=== PATIENT | male | born 1940 | race Caucasian/White ===

== ENCOUNTER 2018-01-11 17:50 | Emergency (ER) | payer MEDICARE ==
[~2018-01-11] VITALS: Ht 180.3 cm; Wt 78.0 kg
[~2018-01-11 17:50] MED LIST: ASPI1TAB69 PO; CHERSYP2 PO; LOSA50TA PO; ROSU40 PO; ZITHTAB PO
[2018-01-11 17:53] VITALS: BP 117/59; PULSE 93; RESP 16; TEMP 98.3; O2SAT 96
[2018-01-11 17:56] VITALS: BP 117/59; PULSE 93; RESP 16; TEMP 98.3
[2018-01-11 18:43] LABS: AUTOMATED NEUTROPHIL # 11.7 TH/MM3 (1.8-7.7); BASOPHIL # 0.1 TH/MM3 (0-0.2); BASOPHIL % 0.6 % (0.0-2.0); EOSINOPHIL # 0.1 TH/MM3 (0-0.4); EOSINOPHIL % 0.8 % (0.0-4.0); HEMATOCRIT 41.5 % (39.0-51.0); HEMOGLOBIN 13.8 GM/DL (13.0-17.0); LYMPHOCYTE # 0.3 TH/MM3 (1.0-4.8); MEAN CELL VOLUME 91.2 FL (80.0-100.0); MEAN CORPUSCULAR HEMOGLOBIN 30.4 PG (27.0-34.0); MEAN CORPUSCULAR HGB CONC 33.3 % (32.0-36.0); MEAN PLATELET VOLUME 8.8 FL (7.0-11.0); MONO % 4.7 % (0.0-8.0); MONOCYTE # 0.6 TH/MM3 (0-0.9); NEUT % 91.9 % (16.0-70.0); PLATELET COUNT 158 TH/MM3 (150-450); RED BLOOD COUNT 4.55 MIL/MM3 (4.50-5.90); RED CELL DISTRIBUTION WIDTH 13.6 % (11.6-17.2); WHITE BLOOD COUNT 12.8 TH/MM3 (4.0-11.0)
--- NOTE | 2018-01-11 18:51 | PD ---
HPI Chief Complaint: Abdominal Pain Time Seen by Provider: 18:13 Travel History International Travel<30 days: No Contact w/Intl Traveler<30days: No Traveled to known affect area: No History of Present Illness HPI 77yo M with PMH of HTN, CAD s/p CABG presents to the ED with c/o lower abdominal pain today. said he has been having generalized fatigue and weakness today. Said he just laid in bed all day and normally more active. Denies any fever, chest pain, sob, n/v, dysuria, hematuria, diarrhea, focal weakness or numbness. PFSH Past Medical History Hx Anticoagulant Therapy: Yes (asa 81mg) Blood Disorders: No Cancer: No Cardiovascular Problems: Yes Coronary Artery Disease: Yes Genitourinary: Yes Hypertension: Yes Kidney Stones: Yes Musculoskeletal: No Neurologic: No Psychiatric: No Reproductive: No Respiratory: No Influenza Vaccination: Yes Past Surgical History Abdominal Surgery: No AICD: No Arteriovenous Shunt: No Cardiac Surgery: Yes Coronary Artery Bypass Graft: Yes (X2) Ear Surgery: No Endocrine Surgery: No Eye Surgery: No Genitourinary Surgery: No Gynecologic Surgery: No Insulin Pump: No Joint Replacement: No Oral Surgery: No Pacemaker: No Thoracic Surgery: No Other Surgery: Yes Social History Alcohol Use: No Tobacco Use: No Substance Use: No Allergies-Medications (Allergen,Severity, Reaction): Coded Allergies: No Known Allergies (Verified Adverse Reaction, Unknown, 01/11/18) Reported Meds & Prescriptions Reported Meds & Active Scripts Active Reported Losartan (Losartan Potassium) 50 Mg Tab 50 Mg PO DAILY Crestor (Rosuvastatin Calcium) 40 Mg Tab 40 Mg PO DAILY Aspirin 81 Mg Tabdr 81 Mg PO DAILY Review of Systems Except as stated in HPI: all other systems reviewed are Neg Physical Exam Narrative GENERAL: 77yo M not in distress. SKIN: Focused skin assessment warm/dry. HEAD: Atraumatic. Normocephalic. EYES: Pupils equal and round. No scleral icterus. No injection or drainage. ENT: No nasal bleeding or discharge. Mucous membranes pink and moist. NECK: Trachea midline. No JVD. CARDIOVASCULAR: Regular rate and rhythm. + murmur appreciated. RESPIRATORY: No accessory muscle use. Clear to auscultation. Breath sounds equal bilaterally. GASTROINTESTINAL: Abdomen soft, +suprapubic and LLQ pain. No rebound tenderness or guarding. MUSCULOSKELETAL: No obvious deformities. No clubbing. No cyanosis. No edema. NEUROLOGICAL: Awake and alert. No obvious cranial nerve deficits. Motor grossly within normal limits. Normal speech. PSYCHIATRIC: Appropriate mood and affect; insight and judgment normal. Data Data Last Documented VS Vital Signs Date Time Temp Pulse Resp B/P (MAP) Pulse Ox O2 Delivery O2 Flow Rate FiO2 01/11/18 20:13 98.2 84 16 110/59 (76) 100 Room Air Orders Orders Complete Blood Count With Diff (01/11/18 18:24) Comprehensive Metabolic Panel (01/11/18 18:24) Lipase (01/11/18 18:24) Urinalysis - C+S If Indicated (01/11/18 18:24) Ct Abd/Pel W Iv Contrast(Rout) (01/11/18 18:24) Electrocardiogram (01/11/18 18:24) Urine Culture (01/11/18 19:08) Ceftriaxone Inj (Rocephin Inj) (01/11/18 20:00) Morphine Inj (Morphine Inj) (01/11/18 20:00) Us Abdomen Gallbladder (01/11/18 ) Labs Laboratory Tests Test 01/11/18 18:35 01/11/18 19:08 White Blood Count 12.8 TH/MM3 Red Blood Count 4.55 MIL/MM3 Hemoglobin 13.8 GM/DL Hematocrit 41.5 % Mean Corpuscular Volume 91.2 FL Mean Corpuscular Hemoglobin 30.4 PG Mean Corpuscular Hemoglobin Concent 33.3 % Red Cell Distribution Width 13.6 % Platelet Count 158 TH/MM3 Mean Platelet Volume 8.8 FL Neutrophils (%) (Auto) 91.9 % Lymphocytes (%) (Auto) 2.0 % Monocytes (%) (Auto) 4.7 % Eosinophils (%) (Auto) 0.8 % Basophils (%) (Auto) 0.6 % Neutrophils # (Auto) 11.7 TH/MM3 Lymphocytes # (Auto) 0.3 TH/MM3 Monocytes # (Auto) 0.6 TH/MM3 Eosinophils # (Auto) 0.1 TH/MM3 Basophils # (Auto) 0.1 TH/MM3 CBC Comment DIFF FINAL Differential Comment Blood Urea Nitrogen 12 MG/DL Creatinine 1.20 MG/DL Random Glucose 135 MG/DL Total Protein 7.0 GM/DL Albumin 3.6 GM/DL Calcium Level 9.0 MG/DL Alkaline Phosphatase 131 U/L Aspartate Amino Transf (AST/SGOT) 1098 U/L Alanine Aminotransferase (ALT/SGPT) 716 U/L Total Bilirubin 2.4 MG/DL Sodium Level 139 MEQ/L Potassium Level 3.8 MEQ/L Chloride Level 105 MEQ/L Carbon Dioxide Level 28.2 MEQ/L Anion Gap 6 MEQ/L Estimat Glomerular Filtration Rate 58 ML/MIN Lipase 237 U/L Urine Collection Type CLEAN CATCH Urine Color ORANGE Urine Turbidity CLEAR Urine pH 7.5 Urine Specific [place] 1.020 Urine Protein 30 mg/dL Urine Glucose (UA) NEG mg/dL Urine Ketones TRACE mg/dL Urine Occult Blood NEG Urine Nitrite NEG Urine Bilirubin MOD Urine Urobilinogen 1.0 MG/DL Urine Leukocyte Esterase NEG Urine RBC 0-3 /hpf Urine WBC 9-14 /hpf Urine Squamous Epithelial Cells 0-5 /hpf Urine Hyaline Casts 0-2 /lpf Urine Mucus MOD /lpf Microscopic Urinalysis Comment CULTURE INDICATED MDM Medical Decision Making Medical Screen Exam Complete: Yes Emergency Medical Condition: Yes Interpretation(s) EKG: NSR 86bpm. Normal axis. RBBB that is not new. Differential Diagnosis Cystitis vs. colitis vs. diverticulitis vs. cholecystitis vs. hepatitis Narrative Course 77yo M with abdominal pain and increased generalized fatigue today. Labs reviewed, mild leukocytosis at 12.8. H/H normal. Liver enzymes are elevated, AST elevated at 1098, ALT elevated at 716 and total bilirubin elevated at 2.4. Lipase normal. UA showed 9-14 WBC. Pt given ceftriaxone. When I went to reevaluate pt and informed him of the elevated liver enzymes he said he had pain when I palpated his right upper abdomen so US was ordered. CT a/p showed bilateral nonobstructing renal calculi. Diverticulosis without diverticulitis. Normal pancreas. No dilation of biliary tree. No calcified gallstones. However, when I went to reevaluated pt and informed him of the CT results, pt has absolutely no RUQ ttp. No pan's sign. Pt now has no tenderness to palpation in abdomen before pain medication. Pt refused morphine. I discussed with pt's and pt and they would like to go home and call his primary care physician Dr. Galvez tomorrow to follow up with him or GI. Pt is very well appearing and has no symptoms currently so I feel that it is not unreasonable to follow up elevated liver enzymes with GI as outpatient. Made joint decision that US is not needed at this time since pt has no abdominal pain. Strict return precautions given. Diagnosis Primary Impression: Elevated liver enzymes Additional Impression: UTI (urinary tract infection) Qualified Codes: N39.0 - Urinary tract infection, site not specified Referrals: Praveen Jesus MD call for appointment Elevated liver enzymes. 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 Return to the ED immediately if you have any abdominal pain, vomiting, fever or any other concerning symptoms. Your AST is elevated at 1098, ALT is elevated at 716. Total bilirubin is elevated at 2.4. Med/Other Pt SpecificInfo: Prescription(s) given Scripts Nitrofurantoin Monohydrate Macrocrystals (Macrobid) 100 Mg Cap 100 MG PO BID for Infection for 7 Days, #14 CAP 0 Refills Prov: Marleny Schmidt DO 01/11/18 Disposition: 01 DISCHARGE HOME Condition: Stable Marleny Schmidt DO Jan 11, 2018 18:51
[2018-01-11 18:55] LABS: CHLORIDE 105 MEQ/L (98-107); SODIUM (NA) 139 MEQ/L (136-145)
[2018-01-11 18:59] LABS: ALBUMIN 3.6 GM/DL (3.4-5.0); BICARBONATE 28.2 MEQ/L (21.0-32.0); GLUCOSE,RANDOM 135 MG/DL (74-106)
[2018-01-11 19:00] LABS: BLOOD UREA NITROGEN 12 MG/DL (7-18)
[2018-01-11 19:02] LABS: ALT (GPT) 716 U/L (12-78); GLOMERULAR FILTRATION RATE 58 ML/MIN (>89)
[2018-01-11 19:04] LABS: TOTAL BILIRUBIN ADULT 2.4 MG/DL (0.2-1.0)
[2018-01-11 19:05] LABS: ALKALINE PHOSPHATASE 131 U/L (45-117)
[2018-01-11 19:10] LABS: AST (GOT) 1098 U/L (15-37)
[2018-01-11 19:16] LABS: BILIRUBIN, URINE MOD (NEG); BLOOD, URINE NEG (NEG); GLUCOSE,URINE NEG (NEG); KETONE, URINE TRACE mg/dL (NEG); NITRITE,URINE NEG (NEG); PH, URINE 7.5 (5.0-8.5); URINE LEUKOCYTE ESTERASE NEG (NEG)
[2018-01-11 19:25] LABS: URINE COLOR ORANGE (YELLW/STRAW)
[2018-01-11 19:28] LABS: MUCUS URINE MOD /lpf (OCC); SQUAMOUS EPITHELIAL CELL URINE 0-5 /hpf (0-5)
[2018-01-11 19:30] LABS: HYALINE CAST, URINE 0-2 /lpf (RARE); RBC, URINE 0-3 /hpf (0-3)
[2018-01-11] MEDS ORDERED: cefTRIAXone INJ 1,000 MG in SODIUM CHLORIDE 0.9% INJ 100 ML IV ONE (20:00)
[2018-01-11] MEDS ORDERED: IOHEXOL 350 MG/ML 10 ML VIAL (for RAD DIAG) IVCONTRAST ONE (20:00)
[2018-01-11] MEDS: MORPHINE SULFATE 2 MG/ML SYRINGE IV PUSH ONE ×2 (20:00→20:08)
--- NOTE | 2018-01-11 20:02 | RADRPT ---
EXAM DATE/TIME: 01/11/2018 19:21 [facility] COMPARISON: No previous studies available for comparison. INDICATIONS : Lower abdominal pain with generalized weakness. IV CONTRAST: 100 cc Omnipaque 350 (iohexol) IV ORAL CONTRAST: No oral contrast ingested. RADIATION DOSE: 13.16 CTDIvol (mGy) MEDICAL HISTORY : Cardiovascular disease. Hypertension. Renal calculi.Anticoagulant therapy. SURGICAL HISTORY : CABG ENCOUNTER: Initial ACUITY: 1 day PAIN SCALE: 7/10 LOCATION: lower quadrant TECHNIQUE: Volumetric scanning of the abdomen and pelvis was performed. Using automated exposure control and ad justment of the mA and/or kV according to patient size, radiation dose was kept as low as reasonably achievable to obtain optimal diagnostic quality images. DICOM format image data is available electro nically for review and comparison. FINDINGS: LOWER LUNGS: The visualized lower lungs are clear. LIVER: Homogeneous density with low-density lesions.. There is no dilation of the biliary tree. No calcifi ed gallstones. SPLEEN: Normal size without lesion. PANCREAS: Within normal limits. KIDNEYS: Normal in size and shape. There is no mass or hydronephrosis. A punctate 1 mm nonobstructing right r enal calculus. 2 nonobstructing left-sided renal calculi measuring 3 and 5 mm. Bilateral renal cysts. ADRENAL GLANDS: Within normal limits. VASCULAR: There is no aortic aneurysm. BOWEL/MESENTERY: Diverticulosis of the colon. There is no free intraperitoneal air or fluid. ABDOMINAL WALL: Within normal limits. RETROPERITONEUM: There is no lymphadenopathy. BLADDER: No wall thickening or mass. REPRODUCTIVE: Within normal limits. INGUINAL: There is no lymphadenopathy or hernia. MUSCULOSKELETAL: Degenerative changes thoracolumbar spine. CONCLUSION: 1. Bilateral nonobstructing renal calculi. 2. Diverticulosis without diverticulitis. 3. Bilateral renal cysts. Kel Garcia MD on January 11, 2018 at 19:56 Board Certified Radiologist. This report was verified electronically.
[2018-01-11 20:13] VITALS: BP 110/59; PULSE 84; RESP 16; TEMP 98.2; O2SAT 100
[2018-01-11] MEDS ORDERED: MACR100C2 PO (20:26)
--- NOTE | 2018-01-12 22:47 | EKG ---
Date Performed: 01/11/2018 Time Performed: 18:37:16 PTAGE: 77 years EKG: Sinus rhythm WITH OCCASIONAL VENTRICULAR PREMATURE COMPLEXES WITH OCCASIONAL SUPRAVENTRICULAR PREMATURE COMPLEXES MARKED RIGHT AXIS DEVIATION RIGHT BUNDLE BRANCH BLOCK ABNORMAL ECG PREVIOUS TRACING : 07/02/2007 03.26 Since the previous tracing, no significant change noted DOCTOR: Robin Talavera Interpretating Date/Time 01/12/2018 22:46:37
== END 2018-01-11 20:53 | disposition home or self-care (01) ==
LOC: PHED 17:50
DX: R74.8 Abnormal levels of other serum enzymes (principal); N39.0 Urinary tract infection, site not specified; N20.0 Calculus of kidney; N28.1 Cyst of kidney, acquired; K57.90 Diverticulosis of intestine, part unspecified, without perforation or abscess without bleeding; I45.10 Unspecified right bundle-branch block; I25.10 Atherosclerotic heart disease of native coronary artery without angina pectoris; I10 Essential (primary) hypertension; R10.30 Lower abdominal pain, unspecified; Z95.1 Presence of aortocoronary bypass graft; Z87.442 Personal history of urinary calculi; Z79.82 Long term (current) use of aspirin
CPT/HCPCS: 74177; 80053; 81001; 83690; 85025; 87086; 93005; 96365; 99285; J0696; Q9967; J2270